=== PATIENT | female | born 1985 | race Hispanic/Latino ===

== ENCOUNTER 2022-06-07 15:39 | Emergency (ER) | payer OTHER ==
[~2022-06-07 15:39] MED LIST: Iopamidol 300 61% 100 ML VIAL FS ONE
[2022-06-07] MEDS ORDERED: Ketorolac Tromethamine 30 MG/ML VIAL ONE (18:00)
== END 2022-06-07 19:10 | disposition home or self-care (01) ==
LOC: CSHERS 15:39
DX: S09.90XA Unspecified injury of head, initial encounter (principal); S80.02XA Contusion of left knee, initial encounter; V43.52XA Car driver injured in collision with other type car in traffic accident, initial encounter
CPT/HCPCS: 70450; 71260; 72125; 74177; J1885; Q9967